=== PATIENT | female | born 1955 | race Caucasian/White ===

== ENCOUNTER 2017-07-29 13:02 | Emergency (ER) | payer BC ==
[2017-07-29 14:15] VITALS: BP 90/54
--- NOTE | 2017-07-29 14:23 | UC ---
Lower Extremity/Ankle HPI - HPI Summary HPI Summary: Pt presents with right midfoot and ankle pain. She tells me that yesterday she was walking down a flight of stairs and missed the last step - sustained inversion ankle injury. Had immediate pain, but was able to bear weight. This morning was not as bad, but still painful - wants to be sure she did not break anything. Denies numbness or tingling. - History of Current Complaint Chief Complaint: UCLowerExtremity Stated Complaint: RIGHT FOOT COMPLAINT Time Seen by Provider: 07/29/17 14:23 Hx Obtained From: Patient Onset/Duration: Sudden Onset Severity Initially: Mild Severity Currently: Mild Pain Intensity: 3 Aggravating Factor(s): Standing, Ambulation Alleviating Factor(s): Rest Able to Bear Weight: Yes - Allergies/Home Medications Allergies/Adverse Reactions: Allergies Allergy/AdvReac Type Severity Reaction Status Date / Time ibuprofen Allergy GI Upset Verified 07/29/17 14:04 indomethacin [From Indocin] Allergy GI Upset Verified 07/29/17 14:04 tetracycline Allergy Unknown Verified 07/29/17 14:04 Reaction Details ALL ANTIBIOTICS Allergy C.DIFF Uncoded 02/02/17 13:48 General Anesthesia AdvReac Vomiting Uncoded 02/02/17 13:48 Home Medications: Home Medications Folic Acid 1 mg PO DAILY 07/29/17 [History Confirmed 07/29/17] Methotrexate TAB* 10 mg PO Q7D 07/29/17 [History Confirmed 07/29/17] predniSONE [Prednisone] 10 mg PO DAILY 07/29/17 [History Confirmed 07/29/17] PMH/Surg Hx/FS Hx/Imm Hx - Additional Past Medical History Additional PMH: rheumatoid arthritis Previously Healthy: Yes - Surgical History Surgical History: Yes Surgery Procedure, Year, and Place: CORNEAL TRANSPLANT / GLOBE IMPLANT THAT IS PLASTIC ( [facility]- CLEARED BY XRAYS - DR JEFFERSON -2008) - BLIND. fecal transplant - Social History Lives: With Family Alcohol Use: None Substance Use Type: None Smoking Status (MU): Never Smoked Tobacco Review of Systems Constitutional: Negative Respiratory: Negative Cardiovascular: Negative Neurovascular: Negative Musculoskeletal: Other: - Right foot pain Neurological: Negative Psychological: Negative All Other Systems Reviewed And Are Negative: Yes Physical Exam - Summary Physical Exam Summary: GENERAL: NAD. WDWN. No pain distress. SKIN: No rashes, sores, ulcers, masses, lesions. NECK: Supple. Nontender. No lymphadenopathy. CHEST: CTAB. No r/r/w. No accessory muscle use. Breathing comfortably and in no distress. CV: RRR. Without m/r/g. Pulses intact PT and DP. Brisk cap refill. MSK: Mild TTP over right midfoot and right ATFL. FROM. Strength 5/5. No edema or obvious bony deformities. Negative talar tilt. No increased laxity. Negative [place] test. NEURO: Alert. Sensations intact and symmetric B/L LEs PSYCH: Age appropriate behavior. Triage Information Reviewed: Yes Vital Signs: Initial Vital Signs Temp 99.6 F 07/29/17 14:09 Pulse 69 07/29/17 14:09 Resp 18 07/29/17 14:09 BP 90/54 07/29/17 14:09 Pulse Ox 100 07/29/17 14:09 Lower Extremity Course/Dx - Course Course Of Treatment: XR: IMPRESSION: NO ACUTE OSSEOUS INJURY. IF SYMPTOMS PERSIST, RECOMMEND REPEAT IMAGING. KETURAH and gel splint. RICE and tylenol prn. - Differential Dx/Diagnosis Provider Diagnoses: Right foot pain Discharge - Sign-Out/Discharge Documenting (check all that apply): Discharge - Discharge Plan Condition: Stable Disposition: HOME Patient Education Materials: Ankle Sprain (DC) Referrals: Rafa Carson MD [Primary Care Provider] - Additional Instructions: If you develop a fever, shortness of breath, chest pain, new or worsening symptoms - please call your PCP or go to the ED. 1) Rest, Ice, and elevate your ankle as much as possible over the next 24- 48hours 2) May take tylenol every 6-8hours as needed for pain 3) May use the KETURAH wrap and gel splint as needed for pain and added comfort. - Billing Disposition and Condition Condition: STABLE Disposition: HOME
--- NOTE | 2017-07-29 14:49 | RAD ---
HISTORY: Right foot pain, trauma COMPARISONS: None VIEWS: 3, Frontal, lateral, and oblique views of the right foot FINDINGS: BONE DENSITY: Normal. BONES: There is no displaced fracture. JOINTS: There is no arthropathy. ALIGNMENT: There is no dislocation. SOFT TISSUES: Unremarkable. OTHER FINDINGS: None. IMPRESSION: NO ACUTE OSSEOUS INJURY. IF SYMPTOMS PERSIST, RECOMMEND REPEAT IMAGING.
== END 2017-07-29 15:21 | disposition home or self-care (01) ==
LOC: UCCORT 13:02
DX: M79.671 Pain in right foot (principal); W10.9XXA Fall (on) (from) unspecified stairs and steps, initial encounter; Y93.9 Activity, unspecified; Y92.9 Unspecified place or not applicable; Z88.4 Allergy status to anesthetic agent; Z88.1 Allergy status to other antibiotic agents; Z88.8 Allergy status to other drugs, medicaments and biological substances
CPT/HCPCS: 99213; G0463